=== PATIENT | male | born 1950 | race Two or more races ===

== ENCOUNTER 2018-04-12 16:21 | Emergency (ER) | payer OTHER ==
[2018-04-12 16:35] VITALS: BP 122/69; PULSE 98; RESP 20; TEMP 98.2
--- NOTE | 2018-04-12 17:33 | ED ---
General Adult HPI - General Chief complaint: Extremity Injury, Lower Stated complaint: [facility], swollen leg Time Seen by Provider: 04/12/18 16:40 Source: patient, RN notes reviewed Mode of arrival: ambulatory Limitations: no limitations - History of Present Illness Initial comments: Patient is a 67-year-old male presenting to the emergency room today with chief complaint of pain to the left calf over the last 4 days. Patient states that he injured his left Achilles tendon a week ago when he was walking. He states he pushed it too far a treadmill and was having some irritation. He does admit that he was on a ladder 4 days ago when he slipped causing increased injury to the area. States the pain has been up into the back of the left. He states he didn't follow-up at the [facility] and was advised coming here to the hospital for ultrasound to rule out possible blood clot. He denies any history of blood clots. He states he is on a blood thinner. He denies any shortness of breath or any other complaints. Patient denies any recent fever, chills, shortness of breath, chest pain, back pain, abdominal pain, nausea or vomiting, headaches or visual changes, or any other complaints. - Related Data Allergies Allergy/AdvReac Type Severity Reaction Status Date / Time No Known Allergies Allergy Verified 04/12/18 16:35 Review of Systems ROS Statement: Those systems with pertinent positive or pertinent negative responses have been documented in the HPI. ROS Other: All systems not noted in ROS Statement are negative. Past Medical History Past Medical History: Hypertension Additional Past Medical History / Comment(s): spinal stenosis History of Any Multi-Drug Resistant Organisms: None Reported Past Surgical History: No Surgical Hx Reported Past Psychological History: No Psychological Hx Reported Smoking Status: Never smoker Past Alcohol Use History: Occasional Past Drug Use History: None Reported General Exam - General Exam Comments Initial Comments: General: The patient is awake and alert, in no distress, and does not appear acutely ill. Neck: The neck is supple, there is no tenderness or JVD. Cardiovascular: There is a regular rate and rhythm. No murmur, rub or gallop is appreciated. Respiratory: Lungs are clear to auscultation, respirations are non-labored, breath sounds are equal. No wheezes, stridor, rales, or rhonchi. Musculoskeletal: Normal ROM. Tender to palpation to the posterior left calf. No bony tenderness to the left knee, left ankle or foot. Strength 5/5. Sensation intact. Pedal Pulses equal bilaterally 2+. Neurological: A&O x 3. CN II-XII intact, There are no obvious motor or sensory deficits. Coordination appears grossly intact. Speech is normal. Skin: Skin is warm and dry and no rashes or lesions are noted. Psychiatric: Cooperative, appropriate mood & affect, normal judgment. Limitations: no limitations Course Vital Signs 04/12/18 16:32 Temperature 98.2 F Pulse Rate 98 Respiratory 20 Rate Blood Pressure 122/69 O2 Sat by Pulse 97 Oximetry Medical Decision Making - Medical Decision Making Patient's ultrasound negative for any evidence of DVT. Results were discussed with the patient. Patient is advised to follow-up with [facility] for further evaluation of the left leg pain after injuring his Achilles tendon. Patient is currently on anti-inflammatories. Advised to return here to emergency room if any symptoms increase or worsen or for any other concerns. Disposition Clinical Impression: Left leg pain Disposition: HOME SELF-CARE Condition: Good Instructions: Leg Pain (ED) Additional Instructions: Please use medication as discussed. Please follow-up with orthopedic/family doctor in the next 2 days of symptoms have not improved. Please return to emergency room if the symptoms increase or worsen or for any other concerns. Is patient prescribed a controlled substance at d/c from ED?: No Referrals: [facility],Clinic [Primary Care Provider] - 1-2 days Zach Becker MD [STAFF PHYSICIAN] - 1-2 days Time of Disposition: 19:46
--- NOTE | 2018-04-12 19:39 | US ---
EXAMINATION TYPE: US venous doppler duplex LE LT DATE OF EXAM: 04/12/2018 5:35 PM COMPARISON: NONE CLINICAL HISTORY: Pain. SIDE PERFORMED: TECHNIQUE: The lower extremity deep venous system is examined utilizing real time linear array sonog anjum with graded compression, doppler sonography and color-flow sonography. VESSELS IMAGED: External Iliac Vein (EIV) Common Femoral Vein Deep Femoral Vein Greater Saphenous Vein * Femoral Vein Popliteal Vein Small Saphenous Vein * Proximal Calf Veins (* superficial vessels) Left Leg: IMPRESSION: Normal left leg duplex venous sonogram. Normal augmentation.
== END 2018-04-12 19:48 | disposition home or self-care (01) ==
LOC: EC 16:21
DX: M79.605 Pain in left leg (principal)
CPT/HCPCS: 99283